=== PATIENT | male | born 1940 ===

== ENCOUNTER 2018-07-12 12:06 | Outpatient (CLI) | payer MEDICARE | END 2018-07-12 12:07 | disposition home or self-care (01) | LOC: C.USIC 12:06 | DX: N20.0 Calculus of kidney (principal); R31.9 Hematuria, unspecified; N28.1 Cyst of kidney, acquired ==

== ENCOUNTER 2018-08-23 11:06 | Outpatient (CLI) | payer MEDICARE | END 2018-08-23 11:07 | disposition home or self-care (01) | LOC: C.RADIC 11:06 ==